=== PATIENT | female | born 1965 | race Caucasian/White ===

== ENCOUNTER 2020-02-23 08:23 | Outpatient (NON) | payer OTHER, SELFPAY ==
[2020-02-23 18:19] LABS: SARS-CoV-2 RNA PCR Negative
== END 2020-02-23 08:24 ==
LOC: ANHCOVIDDT 08:25
PROVIDERS: Visit Provider Family Medicine
DX: R68.89 Other general symptoms and signs (principal); Z20.828 Contact with and (suspected) exposure to other viral communicable diseases
CPT/HCPCS: 87635; C9803; U0003

== ENCOUNTER 2020-03-04 06:31 | Outpatient (NON) | payer OTHER, SELFPAY ==
[2020-03-04 18:38] LABS: SARS-CoV-2 RNA PCR Negative
== END 2020-03-04 06:32 ==
LOC: ANHCOVIDDT 06:32
PROVIDERS: Visit Provider Family Medicine
DX: Z20.822 Contact with and (suspected) exposure to COVID-19 (principal)
CPT/HCPCS: C9803; U0003

== ENCOUNTER → 2020-08-02 13:41 | Outpatient (CLI) | payer OTHER, SELFPAY ==
--- NOTE | ~2020-08-02 | MM_ITS ---
EXAMINATION: MM screening [facility] BI w valery HISTORY: Screening TECHNIQUE: Craniocaudal and mediolateral oblique 3-D tomosynthesis images were obtained and synthetic 2-D images were generated. CAD analysis was submitted and interpreted. COMPARISON: Comparison to multiple prior studies sequentially, with oldest reviewed study dated 04/2016. BREAST PARENCHYMAL COMPOSITION: There are scattered areas of fibroglandular density. FINDINGS: There is no evidence of suspicious mass, calcification, or architectural distortion to sugg est malignancy in either breast. There has been no suspicious interval change. IMPRESSION: 1. No mammographic evidence of malignancy. 2. Recommend routine screening mammography in one year. BI-RADS Category 1: Negative Reviewed, dictated and finalized at location A.
== END ==
PROVIDERS: PCP Family Medicine; Visit Provider Physician Assistant
DX: Z12.31 Encounter for screening mammogram for malignant neoplasm of breast (principal)
CPT/HCPCS: 77063; 77067